=== PATIENT | female | born 1985 | race Two or more races ===

== ENCOUNTER 2019-04-29 16:25 | Emergency (ER) | payer SELFPAY ==
[~2019-04-29] VITALS: Ht 157.5 cm; Wt 81.6 kg
[2019-04-29] MEDS ORDERED: HYDROcodone/APAP 5/325MG 1 TAB TABLET PO ONE ×2 (16:45→18:00)
--- NOTE | 2019-04-29 16:58 | PHYS DOC ---
Past Medical History Past Medical History: No Pertinent History (ELIJAH CAMPOS APRN) Past Surgical History: No Surgical History (ELIJAH CAMPOS APRN) Alcohol Use: None Drug Use: None (ELIJAH CAMPOS APRN) Adult General Chief Complaint Chief Complaint: MECHANICAL FALL HPI HPI Patient is a 33 year old female who presents to the ED today complaining of moderate sharp pain to the right wrist after she fell. Patient states she was walking down one step outside her house after the snow and slipped and fell. Patient denies any loss of consciousness, denies hitting her head on the ground. She reports the pain is worse on touching her wrist or moving right forearm. (ELIJAH CAMPOS APRN) Review of Systems Review of Systems Constitutional: Denies fever or chills [] Eyes: Denies change in visual acuity, redness, or eye pain [] HENT: Denies nasal congestion or sore throat [] Respiratory: Denies cough or shortness of breath [] Cardiovascular: No additional information not addressed in HPI [] GI: Denies abdominal pain, nausea, vomiting, bloody stools or diarrhea [] : Denies dysuria or hematuria [] Musculoskeletal: Reports right wrist pain Integument: Denies rash or skin lesions [] Neurologic: Denies headache, focal weakness or sensory changes [] All other systems were reviewed and found to be within normal limits, except as documented in this note. (ELIJAH CAMPOS APRN) Current Medications Current Medications Current Medications Medications (Trade) Dose Ordered Sig/Shar Start Time Stop Time Status Last Admin Dose Admin Acetaminophen/ Hydrocodone Bitart (Lortab 5/325) 2 tab 1X ONCE 04/29/19 16:45 04/29/19 16:46 DC 04/29/19 16:48 2 TAB Fentanyl Citrate (Fentanyl 2ml Vial) 75 mcg 1X ONCE 04/29/19 17:00 04/29/19 17:02 DC 04/29/19 17:14 75 MCG Ondansetron HCl (Zofran) 4 mg STK-MED ONCE 04/29/19 17:15 04/29/19 17:16 DC Propofol (Diprivan) 200 mg 1X ONCE 04/29/19 17:00 04/29/19 17:02 DC 04/29/19 17:14 100 MG Sodium Chloride 1,000 ml @ 1,000 mls/hr 1X ONCE 04/29/19 17:00 04/29/19 17:59 04/29/19 17:14 1,000 MLS/HR (CAMERON VANCE DO) Allergies Allergies Allergies Coded Allergies Type Severity Reaction Last Updated Verified No Known Drug Allergies 04/29/19 No (CAMERON VANCE DO) Physical Exam Physical Exam Constitutional: Well developed, well nourished, no acute distress, non-toxic appearance. [] HENT: Normocephalic, atraumatic, bilateral external ears normal, oropharynx moist, no oral exudates, nose normal. [] Eyes: PERRLA, EOMI, conjunctiva normal, no discharge. [] Neck: Normal range of motion, no tenderness, supple, no stridor. [] Cardiovascular:Heart rate regular rhythm, no murmur [] Lungs & Thorax: Bilateral breath sounds clear to auscultation [] Abdomen: Bowel sounds normal, soft, no tenderness, no masses, no pulsatile masses. [] Skin: Warm, dry, no erythema, no rash. [] Back: No tenderness, no CVA tenderness. [] Extremities: Right wrist/distal forearm with obvious deformity. Patient unable to tolerate any range of motion to the right wrist. Adequate radial, medial, ulnar sensation to the right upper extremity. +2 right radial pulse. Neurologic: Alert and oriented X 3, normal motor function, normal sensory functi on, no focal deficits noted. [] Psychologic: Affect normal, judgement normal, mood normal. [] (ELIJAH CAMPOS APRN) Current Patient Data Vital Signs Vital Signs Date Time Temp Pulse Resp B/P (MAP) Pulse Ox O2 Delivery O2 Flow Rate FiO2 04/29/19 17:14 16 04/29/19 17:04 82 127/82 (97) 100 Room Air 04/29/19 16:28 97.5 97.5 (CAMERON VANCE DO) EKG EKG [] (ELIJAH CAMPOS APRN) Radiology/Procedures Radiology/Procedures []PROCEDURE: WRIST 3V RIGHT WRIST 3V RIGHT, FOREARM RIGHT History: Fall. Pain. Technique: 3 views right wrist and 2 views right forearm. Comparison: None. Findings: Acute comminuted intra-articular distal radial fracture with dorsal displacement of the distal fracture fragment and angulation. Displaced ulnar styloid fracture. Irregularity of the mid scaphoid. Impression: 1. Acute comminuted intra-articular distal radial fracture with significant dorsal displacement and angulation of the distal fracture fragment. 2. Acute displaced ulnar styloid fracture. 3. Irregularity of the mid scaphoid, may represent nondisplaced fracture. Recommend post reduction radiographs to further assess. Electronically signed by: Adolph Gomez DO (04/29/2019 5:11 PM) [facility] DICTATED and SIGNED BY: ADOLPH GOMEZ DO DATE: 04/29/191710 (ELIJAH CAMPOS APRN) Radiology/Procedures Right distal radius displace fracture reduction procedure at 1715 Patient was sedated with 100 mg propofol iv, 75 mcg of Fentanyl iv. Patient was sedated, the fracture was reduced with manipulation. A sugar tong, orthoglass splint was applied to right forearm by this physician. Post splint exam: no focal neurovascular deficit. Patient tolerated procedure. Patient was sedated for 15 minutes. The sedation and reduction were done by this physician. Patient was observed for 45 minutes post sedation. Patient was doing well, vital signs returned back to presedation state. She was able to walk with assistance without any problem. A sling was applied to right forearm. Patient will be discharged home with pain medication, follow up with orthopedic next week for definitive treatment. (CAMERON VANCE DO) Course & Med Decision Making Course & Med Decision Making Pertinent Labs and Imaging studies reviewed. (See chart for details) This is a 33-year-old female patient presenting to the ED today with right wrist pain status post falling on ice Right wrist/forearm x-rays interpreted by radiologist-Acute comminuted intra- articular distal radial fracture with significant dorsal displacement and angulation of the distal fracture fragment. Acute displaced ulnar styloid fracture. Irregularity of the mid scaphoid, may represent nondisplaced fracture. Recommend post reduction radiographs to further assess. Dr. Vance will perform reduction. See his notes. [address] Forrest who requested patient to be discharged to home and follow up with him in the clinic next week. (ELIJAH CAMPOS APRN) Dragon Disclaimer Dragon Disclaimer This electronic medical record was generated, in whole or in part, using a voice recognition dictation system. (ELIJAH CAMPOS APRN) Departure Departure Impression: Primary Impression: Fall down steps Additional Impressions: Distal radial fracture Fracture of ulnar styloid Disposition: HOME, SELF-CARE Condition: STABLE Referrals: NO PCP (PCP) HANG FORREST MD follow up next week Patient Instructions: Radius Fracture with [facility], Ulnar Fracture Additional Instructions: You were evaluated in the emergency room with right wrist fracture. Please contact the provided orthopedic doctor on Wednesday morning and set up a follow-up appointment. Try to ice and elevate the extremity. Take the pain medicine as needed Scripts Hydrocodone/Apap 5-325 (NORCO 5-325 TABLET) 1 Each Tablet 1-2 TAB PO Q6-8HRS PRN for PAIN, #40 TAB Prov: ELIJAH CAMPOS APRN 04/29/19 MODERATE SEDATION ASSESSMENT RISKS/ALTERNATIVES Risks/Alternatives Risks and alternatives of this type of sedation and procedure discussed with: RISK/ALTERNATIVES: Patient (CAMERON VANCE DO) Risks/Alternatives Risks and alternatives of this type of sedation and procedure discussed with: (ELIJAH CAMPOS APRN) H & P ON CHART H & P H & P on chart and reviewed for co-morbid conditions and appropriate labs. H&P ON CHART: Yes (CAMERON VANCE DO) H & P H & P on chart and reviewed for co-morbid conditions and appropriate labs. (ELIJAH CAMPOS APRN) STATUS PREG STATUS ASSESSED: Yes (CAMERON VANCE DO) MEDS/ALLERGIES REVIEWED Meds/Allergies Reviewed Medications and Allergies including time and route of recently administered narcotics and sedatives. MEDS/ALLERGIES REVIEWED: Yes (CAMERON VANCE DO) Meds/Allergies Reviewed Medications and Allergies including time and route of recently administered narcotics and sedatives. (ELIJAH CAMPOS APRN) ASA RATING ASA RATING: I (CAMERON VANCE DO) AIRWAY ASSESSMENT Airway Assessment Airway patency, oral function limitations, presence of caps, crowns, dentures, partials, and ability to extend neck assessed. AIRWAY ASSESSMENT: Yes (CAMERON VANCE DO) Airway Assessment Airway patency, oral function limitations, presence of caps, crowns, dentures, partials, and ability to extend neck assessed. (ELIJAH CAMPOS APRN) MALLAMPATI SCORE MALLAMPATI SCORE: I (CAMERON VANCE DO) PRE-SEDATION ASSESSMENT PRE-SEDATION ASSESSMENT: Yes (CAMERON VANCE DO) Problem Qualifiers Primary Impression: Fall down steps Encounter type: initial encounter Qualified Codes: W10.8XXA - Fall (on) (from) other stairs and steps, initial encounter Additional Impressions: Distal radial fracture Encounter type: initial encounter Fracture type: closed Fracture morphology: other fracture Laterality: left Qualified Codes: S52.592A - Other fractures of lower end of left radius, initial encounter for closed fracture Fracture of ulnar styloid Encounter type: initial encounter Fracture type: closed Fracture alignment: nondisplaced Laterality: right Qualified Codes: S52.614A - Nondisplaced fracture of right ulna styloid process, initial encounter for closed fracture ELIJAH CAMPOS APRN Apr 29, 2019 16:58 CAMERON VANCE DO Apr 29, 2019 17:52
[2019-04-29] MEDS ORDERED: PROPOFOL 10 MG/ML (20ML) VIAL. IV ONE (17:00)
[2019-04-29] MEDS ORDERED: fentaNYL PF VIAL 100 MCG/2 ML VIAL IVP ONE (17:00)
[2019-04-29] MEDS ORDERED: IV NORMAL SALINE 1000ML BAG 1,000 ML IV ONE (17:00)
--- NOTE | 2019-04-29 17:14 | RAD ---
WRIST 3V RIGHT, FOREARM RIGHT History: Fall. Pain. Technique: 3 views right wrist and 2 views right forearm. Comparison: None. Findings: Acute comminuted intra-articular distal radial fracture with dorsal displacement of the distal fracture fragment and angulation. Displaced ulnar styloid fracture. Irregularity of the mid scaphoid. Impression: 1. Acute comminuted intra-articular distal radial fracture with significant dorsal displacement and angulation of the distal fracture fragment. 2. Acute displaced ulnar styloid fracture. 3. Irregularity of the mid scaphoid, may represent nondisplaced fracture. Recommend post reduction radiographs to further assess. Electronically signed by: Adolph Gomez DO (04/29/2019 5:11 PM) [facility]
[2019-04-29 17:15] VITALS: BP 127/82
[2019-04-29] MEDS ORDERED: ONDANSETRON PF 4 MG/2 ML VIAL. IV ONE (17:15)
[2019-04-29] MEDS ORDERED: ONDANSETRON PF 4 MG/2 ML VIAL. ONE (17:15)
[2019-04-29] MEDS ORDERED: MORPHINE SULFATE 4 MG/ML VIAL. IM ONE (18:15)
[2019-04-29] MEDS ORDERED: HYDR-3164 PO (18:30)
--- NOTE | 2019-04-29 19:55 | RAD ---
WRIST 3V RIGHT History: Post reduction of fracture COMPARISON: Study of earlier today. FINDINGS: There has been placement of an overlying cast which obscures bone detail. There is been partial reduction of the distal radial fracture. There is mild residual lateral and posterior displacement of the distal radial fragment and mild impaction. Ulnar styloid fracture is seen. IMPRESSION: Partial reduction of distal radius fracture. Ulnar styloid fracture. Limited bone detail due to cast but no other definite fractures are seen. Electronically signed by: Ruel Cohen MD (04/29/2019 7:52 PM) [facility]
[2019-04-29 20:11] VITALS: BP 105/58
== END 2019-04-29 19:30 | disposition home or self-care (01) ==
LOC: ER 16:25
DX: S52.511A Displaced fracture of right radial styloid process, initial encounter for closed fracture (principal); S52.611A Displaced fracture of right ulna styloid process, initial encounter for closed fracture; M79.631 Pain in right forearm; W10.8XXA Fall (on) (from) other stairs and steps, initial encounter; Y93.89 Activity, other specified; Y92.098 Other place in other non-institutional residence as the place of occurrence of the external cause; Y99.8 Other external cause status
CPT/HCPCS: 25605; 73090; 73110; 96372; 96374; 99285; J2270; J2405; J2704; J3010; J7030

== ENCOUNTER 2019-05-12 06:02 | Day surgery (SDC) | payer SELFPAY ==
[~2019-05-12] VITALS: Ht 157.5 cm; Wt 81.6 kg
[~2019-05-12 06:02] MED LIST: HYDR-3164 PO; ceFAZolin SODIUM IV Push 1 GM VIAL. IVP PRN
[2019-05-12] MEDS ORDERED: IV RINGERS,LACTATED 1000ML 1,000 ML IV SCH (07:00)
[2019-05-12] MEDS ORDERED: MORPHINE SULFATE 2 MG/ML VIAL. IV PRN (07:00)
[2019-05-12] MEDS ORDERED: fentaNYL PF VIAL 100 MCG/2 ML VIAL IV PRN (07:00)
[2019-05-12] MEDS ORDERED: LIDOCAINE 1% PF 2 ML VIAL. ID PRN (07:00)
[2019-05-12] MEDS ORDERED: PROCHLORPERAZINE 10 MG/2 ML VIAL. IV PRN (07:00)
[2019-05-12] MEDS ORDERED: HYDROmorphone 2 MG/ML VIAL IV PRN (07:00)
[2019-05-12] MEDS ORDERED: ONDANSETRON PF 4 MG/2 ML VIAL. IV PRN (07:00)
[2019-05-12] MEDS ORDERED: BUPIVACAINE MPF 0.5% 30 ML VIAL. ONE (07:08)
[2019-05-12] MEDS ORDERED: ROPIVacaine 0.5% PF 20 ML VIAL. ONE (07:08)
[2019-05-12] MEDS ORDERED: LIDOCAINE 2% PF 5 ML VIAL. ONE (09:30)
[2019-05-12] MEDS ORDERED: PROPOFOL 20 ML IV ONE (09:30)
[2019-05-12] MEDS ORDERED: ONDANSETRON PF 4 MG/2 ML VIAL. ONE (09:31)
[2019-05-12] MEDS ORDERED: DEXAMETHASONE SOD PHOS 4 MG/ML VIAL ONE (09:31)
[2019-05-12] MEDS ORDERED: MIDAZOLAM HCL/PF 2 MG/2 ML VIAL. ONE (09:31)
[2019-05-12] MEDS ORDERED: fentaNYL PF VIAL 100 MCG/2 ML VIAL ONE ×3 (09:31→11:17)
[2019-05-12] MEDS ORDERED: HYDROmorphone 2 MG/ML VIAL ONE (09:32)
[2019-05-12] MEDS: fentaNYL PF VIAL 100 MCG/2 ML VIAL IV PRN ×2 (10:30→10:44)
[2019-05-12] MEDS ORDERED: HYDROcodone/APAP 7.5/325MG 1 TAB TABLET PO ONE (10:45)
[2019-05-12 11:30] VITALS: BP 104/67
[2019-05-12] MEDS ORDERED: HYDR-3165 PO (11:49)
--- NOTE | 2019-05-12 11:50 | DISCH ---
DISCHARGE INSTRUCTIONS Condition on Discharge Condition on Discharge: Stable Activity After Discharge Activity Instructions for Disc: Other, see below (fine motor use permitted such as grasping silverware writing or typing; avoid hard grasp pushing pulling or lifting) Diet after Discharge Diet after Discharge: Regular Wound Incision Care Wound/Incision Care: Do not change dressing (keep dressing and splint intact unless soiled) Contacting the after DC Call your doctor for: Concerns you may have Follow-Up Follow up with: Dr. Killian 10 days HANG KILLIAN MD May 12, 2019 11:50
--- NOTE | 2019-05-12 13:10 | PDOC4 ---
Operative Note Operative Note Date of surgery: 05/12/2019 Preoperative diagnosis: Displaced extra-articular right distal radius fracture Postoperative diagnosis: Same with failure of closed reduction attempt Operative procedure: Open reduction internal fixation extra-articular right distal radius fracture Surgeon: Constantin Assist: Leonardo morrison Anesthesia: Gen. Estimated blood loss: 25 mL Complications: None Operative indications: Please see my preoperative clinic note for detailed operative indications and note that we had covered the possibility of infection nerve or blood vessel damage delayed or nonhealing continued pain stiffness medical or other anesthetic complications among others. Her discussion about her fracture the x-ray pictures and findings were all discussed with the assistance of a spanish interpreter in our clinic and reviewed today she has no new questions and wishes to proceed with surgical evaluation and treatment as planned. Operative text: Patient was identified procedure verified patient placed in the supine position on the operating table. After adequate amounts of general anesthesia were administered the right upper extremity was prepped and draped in standard sterile fashion and a upper arm tourniquet had been placed. After timeout was performed patient procedure identified and verified closed reduction was first attempted under fluoroscopic guidance but inadequate reduction was obtained and therefore open reduction was elected and the right upper extremity was examined with Esmarch bandage tourniquet inflated to 250 mm mercury. A volar Sohan approach was then carried out to the distal radius and subperiosteal dissection was carried out. The reduction was somewhat difficult even in an open fashion but by levering the bone with a [place]ville elevator and preliminary K wire fixation adequate reduction was carried out to allow fixation with a Tamie distal radius locking plate narrow standard length which was placed under fluoroscopic guidance with a single screw in the sliding hole on the shaft and after further manipulation with bone reduction forceps through small dorsal stab incisions anatomic as possible placement on the distal radius and slight conforming of the plate the distal K wire was placed for screw fixation and due to additional difficulty routing the distal screws multidirectional screws were placed having gotten good fixation in the distal row proximal row screws gave good fixation and the placement and length of the screws was checked under fluoroscopic guidance and one specific screw at the fracture site was omitted distally to avoid any fracture displacement. An additional shaft screw was placed and all reduction and hardware placement verified under fluoroscopic guidance. Thorough irrigation carried out normal saline solution closure accomplished with buried Vicryl suture subcuticular Monocryl and a provisional small stab incisions to allow placement of reduction forceps were closed with nylon suture sterile dressings were applied followed by a well-padded volar splint fingers were noted be warm pink find deflation of the tourniquet. Patient was returned to recovery room in stable condition having tolerated procedure well. Leonardo becerra assist was present for the procedure assisted in the positioning prepping draping retraction and skin closure and splint application HANG FORREST MD May 12, 2019 13:10
== END 2019-05-12 12:25 | disposition home or self-care (01) ==
LOC: SURG 06:02
PROVIDERS: ATTEND Orthopaedic Surgery
DX: S52.551A Other extraarticular fracture of lower end of right radius, initial encounter for closed fracture (principal); I10 Essential (primary) hypertension; X58.XXXA Exposure to other specified factors, initial encounter; Y93.89 Activity, other specified; Y92.89 Other specified places as the place of occurrence of the external cause; Y99.8 Other external cause status; Z79.899 Other long term (current) drug therapy
CPT/HCPCS: 25607; 81025; A7015; C1713; J0690; J1100; J1170; J2001; J2250; J2405; J2704; J3010; J3490; 76000; J2795